=== PATIENT | male | born 1940 | race Caucasian/White ===

== ENCOUNTER 2020-06-03 13:40 | Emergency (ER) | payer OTHER, MEDICARE ==
[~2020-06-03] VITALS: Ht 175.3 cm; Wt 85.7 kg
[2020-06-03 16:03] VITALS: BP 110/59
== END 2020-06-03 16:04 | disposition home or self-care (01) ==
LOC: M.ERS 13:40
DX: S16.1XXA Strain of muscle, fascia and tendon at neck level, initial encounter (principal); S09.90XA Unspecified injury of head, initial encounter; M54.5 Low back pain; I10 Essential (primary) hypertension; E11.9 Type 2 diabetes mellitus without complications; Z91.048 Other nonmedicinal substance allergy status; Z88.1 Allergy status to other antibiotic agents; V47.6XXA Car passenger injured in collision with fixed or stationary object in traffic accident, initial encounter; Y93.89 Activity, other specified; Y92.89 Other specified places as the place of occurrence of the external cause; Y99.8 Other external cause status